=== PATIENT | female | born 1945 | race Caucasian/White ===

== ENCOUNTER 2019-06-06 16:14 | Inpatient (IN) | payer MEDICAID, OTHER ==
[2019-06-06] MEDS: ONDANSETRON (ODT) 4 MG TAB ODT (16:33)
[2019-06-06] MEDS: HYDROCODONE/APAP (10/325) TAB PO (16:33)
[2019-06-06 17:17] LABS: ADD MAN DIFF? NO
[2019-06-06 17:23] LABS: BASOPHILS % 0.3 % (0.0-2.0); EOSINOPHILS % 0.6 % (0.0-7.0); HEMATOCRIT 37.9 % (37.0-47.0); HEMOGLOBIN 12.4 g/dl (12.0-16.0); LYMPHOCYTES # 0.9 10^3/ul (0.8-2.9); LYMPHOCYTES % 12.6 % (15.0-51.0); MEAN CORPUSCULAR HEMOGLOBIN 28.4 pg (29.0-33.0); MEAN CORPUSCULAR HGB CONC 32.7 g/dl (32.0-37.0); MEAN CORPUSCULAR VOLUME 86.7 fl (82.0-101.0); MONOCYTE # 0.4 10^3/ul (0.3-0.9); MONOCYTES % 5.8 % (0.0-11.0); NEUTROPHIL # 5.7 10^3/ul (1.6-7.5); NEUTROPHILS % 80.3 % (39.0-77.0); PLATELET COUNT 149 10^3/UL (140-415); RED BLOOD COUNT 4.37 10^6/ul (4.20-5.40); RED CELL DISTRIBUTION WIDTH 13.6 % (11.5-14.5)
[2019-06-06 17:23] LABS: WHITE BLOOD COUNT 7.1 10^3/ul (4.8-10.8)
[2019-06-06] MEDS ORDERED: ONDANSETRON 4 MG INJ IV (17:30)
[2019-06-06] MEDS ORDERED: ACETAMINOPHEN 325 MG TAB PO ×2 (17:30→18:00)
[2019-06-06 17:42] LABS: INR 1.12; PARTIAL THROMBOPLASTIN TIME 29.1 Sec (23.0-35.0); PROTIME 14.5 Sec (11.9-14.9); PT RATIO 1.1
[2019-06-06 17:47] LABS: ANION GAP 7 (5-13); BLOOD UREA NITROGEN 16 mg/dl (7-20); CALCIUM 8.9 mg/dl (8.4-10.2); CARBON DIOXIDE 25 mmol/L (21-31); CHLORIDE 105 mmol/L (97-110); CREATININE 0.72 mg/dl (0.44-1.00); GLUCOSE 134 mg/dl (70-220); SODIUM 137 mmol/L (135-144)
[2019-06-06 17:49] LABS: POTASSIUM 4.1 mmol/L (3.5-5.1)
[2019-06-06 17:59] LABS: TROPONIN-I < 0.012 ng/ml (0.000-0.120)
[2019-06-06] MEDS ORDERED: NACL 0.9% 3 ML SYG IV (18:00)
[2019-06-06] MEDS ORDERED: MAGNESIUM HYDROXIDE 30ML CUP PO (18:00)
[2019-06-06] MEDS ORDERED: GLUCOSE GEL 15 GRAM TUBE BUCCAL (18:30)
[2019-06-06] MEDS ORDERED: DEXTROSE 50% 50 ML SYRINGE IV ×2 (18:30)
[2019-06-06] MEDS ORDERED: GLUCAGON 1 MG INJ IM (18:30)
[2019-06-06] MEDS ORDERED: GLUCOSE GEL 15 GRAM TUBE PO ×2 (18:30)
[2019-06-06] MEDS: morphine 2 MG INJ IV ×2 (18:47→23:30)
[2019-06-06] MEDS: ONDANSETRON 4 MG INJ IV (18:47)
[2019-06-06] MEDS ORDERED: hydrALAzine 20 MG INJ IV (19:00)
[2019-06-06] MEDS: DEXTROSE 5%-0.45% NACL 1,000 ML IV (20:26)
[2019-06-06] MEDS: INSULIN ASPART [NOVOLOG] 3 ML PEN SC (23:44)
[2019-06-07] MEDS: INSULIN ASPART [NOVOLOG] 3 ML PEN SC ×6 (01:21→21:13)
[2019-06-07 01:29] LABS: TROPONIN-I < 0.012 ng/ml (0.000-0.120)
[2019-06-07] MEDS: DEXTROSE 5%-0.45% NACL 1,000 ML IV ×3 (02:39→15:57)
[2019-06-07 04:57] LABS: ADD MAN DIFF? NO
[2019-06-07 05:02] LABS: BASOPHILS % 0.2 % (0.0-2.0); EOSINOPHILS # 0.1 10^3/ul (0.0-0.5); EOSINOPHILS % 1.1 % (0.0-7.0); HEMATOCRIT 37.9 % (37.0-47.0); HEMOGLOBIN 12.2 g/dl (12.0-16.0); LYMPHOCYTES % 17.5 % (15.0-51.0); MEAN CORPUSCULAR HEMOGLOBIN 27.9 pg (29.0-33.0); MEAN CORPUSCULAR HGB CONC 32.2 g/dl (32.0-37.0); MEAN CORPUSCULAR VOLUME 86.5 fl (82.0-101.0); MEAN PLATELET VOLUME 9.7 fl (7.4-10.4); MONOCYTE # 0.5 10^3/ul (0.3-0.9); MONOCYTES % 8.1 % (0.0-11.0); NEUTROPHILS % 72.9 % (39.0-77.0); PLATELET COUNT 133 10^3/UL (140-415); RED BLOOD COUNT 4.38 10^6/ul (4.20-5.40); RED CELL DISTRIBUTION WIDTH 13.5 % (11.5-14.5)
[2019-06-07 05:02] LABS: WHITE BLOOD COUNT 5.5 10^3/ul (4.8-10.8)
[2019-06-07] MEDS: HYDROCODONE/APAP (5/325) TAB PO ×2 (05:14→18:19)
[2019-06-07] MEDS: PANTOPRAZOLE (EC) 40 MG TAB PO (05:14)
[2019-06-07 05:16] LABS: HDL CHOLESTEROL 37 mg/dl (33-92); LDL CHOLESTEROL,CALCULATED 33 mg/dl; TRIGLYCERIDES 25 mg/dl (0-149)
[2019-06-07 05:16] LABS: CHOLESTEROL 75 mg/dl (100-200)
[2019-06-07 05:27] LABS: TROPONIN-I < 0.012 ng/ml (0.000-0.120)
[2019-06-07 07:55] LABS: ANION GAP 5 (5-13); BLOOD UREA NITROGEN 10 mg/dl (7-20); CALCIUM 8.6 mg/dl (8.4-10.2); CARBON DIOXIDE 25 mmol/L (21-31); CHLORIDE 107 mmol/L (97-110); GLUCOSE 126 mg/dl (70-220); MAGNESIUM 1.8 mg/dl (1.7-2.5); POTASSIUM 4.1 mmol/L (3.5-5.1); SODIUM 137 mmol/L (135-144)
[2019-06-07] MEDS: BENAZEPRIL 10 MG TAB PO (08:21)
[2019-06-07 13:00] LABS: TROPONIN-I < 0.012 ng/ml (0.000-0.120)
[2019-06-08] MEDS: PANTOPRAZOLE (EC) 40 MG TAB PO (05:18)
[2019-06-08] MEDS: HYDROCODONE/APAP (5/325) TAB PO ×2 (05:18→13:24)
[2019-06-08] MEDS: INSULIN ASPART [NOVOLOG] 3 ML PEN SC ×4 (07:20→20:09)
[2019-06-08] MEDS: BENAZEPRIL 10 MG TAB PO (08:38)
[2019-06-08] MEDS: DEXTROSE 5%-0.45% NACL 1,000 ML IV ×2 (09:40→14:57)
[2019-06-08] MEDS: morphine 2 MG INJ IV (14:57)
[2019-06-08 14:58] LABS: ADD UMIC YES; UR ASCORBIC ACID NEGATIVE (NEGATIVE); UR BILIRUBIN (Dip) NEGATIVE (NEGATIVE); UR BLOOD (Dip) 1+ mg/dL (NEGATIVE); UR CLARITY CLEAR (CLEAR); UR COLOR YELLOW (YELLOW); UR GLUCOSE (Dip) NEGATIVE (NEGATIVE); UR KETONES (Dip) TRACE mg/dL (NEGATIVE); UR LEUKOCYTE ESTERASE (Dip) NEGATIVE Leu/ul (NEGATIVE); UR NITRITE (Dip) NEGATIVE (NEGATIVE); UR RBC 0 /HPF (0-5); UR SPECIFIC GRAVITY (Dip) 1.008 (1.003-1.030); UR TOTAL PROTEIN (Dip) NEGATIVE (NEGATIVE); UR UROBILINOGEN (Dip) NEGATIVE (NEGATIVE); UR WBC 0 /HPF (0-5)
[2019-06-09] MEDS: morphine 2 MG INJ IV (01:42)
[2019-06-09 05:20] LABS: ADD MAN DIFF? NO
[2019-06-09] MEDS: PANTOPRAZOLE (EC) 40 MG TAB PO (05:28)
[2019-06-09 05:29] LABS: WHITE BLOOD COUNT 5.3 10^3/ul (4.8-10.8)
[2019-06-09 05:29] LABS: BASOPHILS % 0.2 % (0.0-2.0); EOSINOPHILS # 0.1 10^3/ul (0.0-0.5); EOSINOPHILS % 2.3 % (0.0-7.0); HEMATOCRIT 40.5 % (37.0-47.0); HEMOGLOBIN 13.1 g/dl (12.0-16.0); LYMPHOCYTES % 18.8 % (15.0-51.0); MEAN CORPUSCULAR HEMOGLOBIN 27.6 pg (29.0-33.0); MEAN CORPUSCULAR HGB CONC 32.3 g/dl (32.0-37.0); MEAN CORPUSCULAR VOLUME 85.3 fl (82.0-101.0); MEAN PLATELET VOLUME 10.2 fl (7.4-10.4); MONOCYTE # 0.5 10^3/ul (0.3-0.9); MONOCYTES % 8.8 % (0.0-11.0); NEUTROPHIL # 3.7 10^3/ul (1.6-7.5); NEUTROPHILS % 69.7 % (39.0-77.0); PLATELET COUNT 131 10^3/UL (140-415); RED BLOOD COUNT 4.75 10^6/ul (4.20-5.40); RED CELL DISTRIBUTION WIDTH 13.3 % (11.5-14.5)
[2019-06-09 05:56] LABS: ALBUMIN 3.5 g/dl (3.3-4.9); ANION GAP 6 (5-13); BLOOD UREA NITROGEN 11 mg/dl (7-20); CALCIUM 8.9 mg/dl (8.4-10.2); CARBON DIOXIDE 27 mmol/L (21-31); CHLORIDE 102 mmol/L (97-110); CREATININE 0.55 mg/dl (0.44-1.00); GLUCOSE 136 mg/dl (70-220); MAGNESIUM 1.9 mg/dl (1.7-2.5); PHOSPHORUS 2.8 mg/dl (2.5-4.9); POTASSIUM 3.9 mmol/L (3.5-5.1); SODIUM 135 mmol/L (135-144)
[2019-06-09] MEDS: INSULIN ASPART [NOVOLOG] 3 ML PEN SC ×4 (08:00→20:07)
[2019-06-09] MEDS ORDERED: ROCURONIUM 50 MG INJ (08:03)
[2019-06-09] MEDS ORDERED: PROPOFOL 20 ML (08:03)
[2019-06-09] MEDS ORDERED: LIDOCAINE 2% (SDV) 5 ML INJ (08:03)
[2019-06-09] MEDS ORDERED: MIDAZOLAM 1 MG/ML 2 ML INJ (08:04)
[2019-06-09] MEDS ORDERED: FENTAnyl 50 MCG/ML VIAL (08:04)
[2019-06-09] MEDS ORDERED: BUPIVACAINE 0.5% (SDV) 30 ML INJ (08:04)
[2019-06-09] MEDS ORDERED: METOCLOPRAMIDE 10 MG INJ (08:04)
[2019-06-09] MEDS ORDERED: morphine SULFATE/PF (10 MG/10 ML) INJ (08:04)
[2019-06-09] MEDS ORDERED: ONDANSETRON 4 MG INJ (08:04)
[2019-06-09] MEDS ORDERED: POLYMYXIN/BACITRACIN 1L IRRIG (08:33)
[2019-06-09] MEDS ORDERED: CEFAZOLIN 1 GM INJ (09:00)
[2019-06-09] MEDS ORDERED: PHENYLephrine (100 MCG/ML) 10ML SYG ×2 (10:03→11:32)
[2019-06-09] MEDS ORDERED: EPHEDrine 25 MG/5 ML SYG (10:10)
[2019-06-09] MEDS: BACITRACIN 50000 UNITS INJ (10:11)
[2019-06-09] MEDS: POLYMYXIN B 500000 UNIT INJ (10:11)
[2019-06-09] MEDS ORDERED: ALBUMIN HUMAN 5% 250 ML (10:33)
[2019-06-09 10:55] LABS: IMMEDIATE SPIN CROSSMATCH 1 1
[2019-06-09] MEDS ORDERED: SUGAMMADEX SODIUM 200 MG/2 ML VIAL IV (11:14)
[2019-06-09] MEDS ORDERED: DIPHENHYDRAMINE 50 MG INJ IV (11:30)
[2019-06-09] MEDS ORDERED: NALBUPHINE HCL (10 MG/1 ML) INJ IV (11:30)
[2019-06-09] MEDS ORDERED: PROCHLORPERAZINE 10 MG INJ IV (11:30)
[2019-06-09] MEDS ORDERED: NALOXONE (0.4 MG/ML) INJ IV (11:30)
[2019-06-09] MEDS ORDERED: FENTAnyl 50 MCG/ML VIAL IV (11:30)
[2019-06-09] MEDS ORDERED: MEPERIDINE 25 MG INJ IV (11:30)
[2019-06-09] MEDS ORDERED: HYDROmorphONE 0.5 MG/0.5 ML SYG IV (11:30)
[2019-06-09] MEDS ORDERED: GLYCOPYRROLATE 0.4 MG INJ (11:34)
[2019-06-09] MEDS ORDERED: morphine 4 MG/ML VIAL IV (12:00)
[2019-06-09] MEDS ORDERED: NACL 0.9% 3 ML SYG IV (12:00)
[2019-06-09] MEDS: HYDROmorphONE 1 MG/5 ML IV SYRINGE IV ×2 (12:27→12:35)
[2019-06-09] MEDS: SOD CHLORIDE 0.9% 1,000 ML IV ×2 (12:33→20:01)
[2019-06-09 12:34] LABS: ADD MAN DIFF? NO
[2019-06-09] MEDS: ONDANSETRON 4 MG INJ IV ×2 (12:35→13:50)
[2019-06-09 12:42] LABS: WHITE BLOOD COUNT 8.4 10^3/ul (4.8-10.8)
[2019-06-09 12:42] LABS: BASOPHILS % 0.1 % (0.0-2.0); EOSINOPHILS # 0.1 10^3/ul (0.0-0.5); HEMATOCRIT 37.1 % (37.0-47.0); LYMPHOCYTES # 1.3 10^3/ul (0.8-2.9); LYMPHOCYTES % 15.5 % (15.0-51.0); MEAN CORPUSCULAR HEMOGLOBIN 28.1 pg (29.0-33.0); MEAN CORPUSCULAR HGB CONC 32.3 g/dl (32.0-37.0); MEAN CORPUSCULAR VOLUME 86.9 fl (82.0-101.0); MEAN PLATELET VOLUME 9.8 fl (7.4-10.4); MONOCYTE # 0.7 10^3/ul (0.3-0.9); MONOCYTES % 7.8 % (0.0-11.0); NEUTROPHIL # 6.3 10^3/ul (1.6-7.5); NEUTROPHILS % 75.2 % (39.0-77.0); PLATELET COUNT 134 10^3/UL (140-415); RED BLOOD COUNT 4.27 10^6/ul (4.20-5.40); RED CELL DISTRIBUTION WIDTH 13.3 % (11.5-14.5)
[2019-06-09 12:44] LABS: POSITIVE DIFF @See below
[2019-06-09 12:53] LABS: ANION GAP 6 (5-13); BLOOD UREA NITROGEN 10 mg/dl (7-20); CARBON DIOXIDE 24 mmol/L (21-31); CHLORIDE 106 mmol/L (97-110); CREATININE 0.55 mg/dl (0.44-1.00); GLUCOSE 178 mg/dl (70-220); POTASSIUM 4.4 mmol/L (3.5-5.1); SODIUM 136 mmol/L (135-144)
[2019-06-09] MEDS: DEXTROSE 5%-0.45% NACL 1,000 ML IV (14:21)
[2019-06-09] MEDS: BENAZEPRIL 10 MG TAB PO (14:25)
[2019-06-09] MEDS: CEFAZOLIN 2 GM/50 ML (PMX) 50 ML IVPB ×2 (14:28→20:01)
[2019-06-09] MEDS: TRIMETHOBENZAMIDE 100 MG/ML VIAL IM (16:18)
[2019-06-09] MEDS: METOCLOPRAMIDE 10 MG INJ IV (18:14)
[2019-06-10] MEDS: CEFAZOLIN 2 GM/50 ML (PMX) 50 ML IVPB (04:50)
[2019-06-10] MEDS: PANTOPRAZOLE (EC) 40 MG TAB PO (04:50)
[2019-06-10 04:57] LABS: ADD MAN DIFF? NO; BASOPHILS % 0.2 % (0.0-2.0); EOSINOPHILS % 0.2 % (0.0-7.0); HEMATOCRIT 28.6 % (37.0-47.0); HEMOGLOBIN 9.3 g/dl (12.0-16.0); LYMPHOCYTES # 0.7 10^3/ul (0.8-2.9); LYMPHOCYTES % 12.7 % (15.0-51.0); MEAN CORPUSCULAR HEMOGLOBIN 27.9 pg (29.0-33.0); MEAN CORPUSCULAR HGB CONC 32.5 g/dl (32.0-37.0); MEAN CORPUSCULAR VOLUME 85.9 fl (82.0-101.0); MEAN PLATELET VOLUME 10.8 fl (7.4-10.4); MONOCYTE # 0.7 10^3/ul (0.3-0.9); MONOCYTES % 13.1 % (0.0-11.0); NEUTROPHIL # 4.2 10^3/ul (1.6-7.5); NEUTROPHILS % 73.6 % (39.0-77.0); PLATELET COUNT 116 10^3/UL (140-415); RED BLOOD COUNT 3.33 10^6/ul (4.20-5.40); RED CELL DISTRIBUTION WIDTH 13.4 % (11.5-14.5)
[2019-06-10 04:57] LABS: WHITE BLOOD COUNT 5.7 10^3/ul (4.8-10.8)
[2019-06-10 05:22] LABS: ALBUMIN 2.7 g/dl (3.3-4.9); ANION GAP 3 (5-13); BLOOD UREA NITROGEN 16 mg/dl (7-20); CALCIUM 8.2 mg/dl (8.4-10.2); CARBON DIOXIDE 25 mmol/L (21-31); CHLORIDE 107 mmol/L (97-110); CREATININE 0.58 mg/dl (0.44-1.00); GLUCOSE 139 mg/dl (70-220); MAGNESIUM 1.6 mg/dl (1.7-2.5); PHOSPHORUS 2.8 mg/dl (2.5-4.9); POTASSIUM 4.4 mmol/L (3.5-5.1); SODIUM 135 mmol/L (135-144)
[2019-06-10] MEDS: BENAZEPRIL 10 MG TAB PO (08:45)
[2019-06-10] MEDS: morphine 2 MG INJ IV ×3 (08:46→20:11)
[2019-06-10] MEDS: SOD CHLORIDE 0.9% 1,000 ML IV (08:47)
[2019-06-10] MEDS: ENOXAPARIN 40 MG/0.4 ML SYG SC (08:47)
[2019-06-10] MEDS: INSULIN ASPART [NOVOLOG] 3 ML PEN SC ×4 (08:48→21:27)
[2019-06-10] MEDS: MAGNESIUM OXIDE 400 MG TAB PO (17:45)
[2019-06-10] MEDS: DOCUSATE SODIUM 100 MG CAP PO (21:25)
[2019-06-11] MEDS: SOD CHLORIDE 0.9% 1,000 ML IV ×2 (00:18→13:49)
[2019-06-11 05:12] LABS: ADD MAN DIFF? NO
[2019-06-11 05:16] LABS: BASOPHILS % 0.2 % (0.0-2.0); EOSINOPHILS % 0.3 % (0.0-7.0); HEMOGLOBIN 8.4 g/dl (12.0-16.0); LYMPHOCYTES # 0.7 10^3/ul (0.8-2.9); LYMPHOCYTES % 11.9 % (15.0-51.0); MEAN CORPUSCULAR HEMOGLOBIN 28.2 pg (29.0-33.0); MEAN CORPUSCULAR HGB CONC 33.6 g/dl (32.0-37.0); MEAN CORPUSCULAR VOLUME 83.9 fl (82.0-101.0); MEAN PLATELET VOLUME 10.7 fl (7.4-10.4); MONOCYTE # 0.8 10^3/ul (0.3-0.9); NEUTROPHIL # 4.3 10^3/ul (1.6-7.5); NEUTROPHILS % 74.3 % (39.0-77.0); PLATELET COUNT 106 10^3/UL (140-415); RED BLOOD COUNT 2.98 10^6/ul (4.20-5.40); RED CELL DISTRIBUTION WIDTH 13.3 % (11.5-14.5)
[2019-06-11 05:16] LABS: WHITE BLOOD COUNT 5.8 10^3/ul (4.8-10.8)
[2019-06-11 05:29] LABS: ALBUMIN 2.6 g/dl (3.3-4.9); ANION GAP 4 (5-13); BLOOD UREA NITROGEN 9 mg/dl (7-20); CALCIUM 8.2 mg/dl (8.4-10.2); CARBON DIOXIDE 25 mmol/L (21-31); CHLORIDE 104 mmol/L (97-110); CREATININE 0.46 mg/dl (0.44-1.00); GLUCOSE 140 mg/dl (70-220); MAGNESIUM 1.8 mg/dl (1.7-2.5); PHOSPHORUS 2.2 mg/dl (2.5-4.9); POTASSIUM 3.8 mmol/L (3.5-5.1); SODIUM 133 mmol/L (135-144)
[2019-06-11] MEDS: morphine 2 MG INJ IV (05:46)
[2019-06-11] MEDS: PANTOPRAZOLE (EC) 40 MG TAB PO (05:46)
[2019-06-11] MEDS: BENAZEPRIL 10 MG TAB PO (08:30)
[2019-06-11] MEDS: ENOXAPARIN 40 MG/0.4 ML SYG SC (08:33)
[2019-06-11] MEDS: INSULIN ASPART [NOVOLOG] 3 ML PEN SC ×4 (08:34→21:00)
[2019-06-11] MEDS: HYDROCODONE/APAP (5/325) TAB PO ×2 (11:32→15:08)
[2019-06-12] MEDS: SOD CHLORIDE 0.9% 1,000 ML IV (02:19)
[2019-06-12] MEDS: PANTOPRAZOLE (EC) 40 MG TAB PO (05:44)
[2019-06-12] MEDS: INSULIN ASPART [NOVOLOG] 3 ML PEN SC ×4 (07:50→21:00)
[2019-06-12] MEDS: BENAZEPRIL 10 MG TAB PO (09:31)
[2019-06-12] MEDS: ENOXAPARIN 40 MG/0.4 ML SYG SC (09:32)
[2019-06-12] MEDS: HYDROCODONE/APAP (5/325) TAB PO ×2 (09:35→13:58)
[2019-06-13] MEDS: PANTOPRAZOLE (EC) 40 MG TAB PO (05:22)
[2019-06-13] MEDS: HYDROCODONE/APAP (5/325) TAB PO ×3 (05:22→18:04)
[2019-06-13] MEDS: INSULIN ASPART [NOVOLOG] 3 ML PEN SC ×3 (07:50→17:55)
[2019-06-13] MEDS: BENAZEPRIL 10 MG TAB PO (08:33)
[2019-06-13] MEDS: ENOXAPARIN 40 MG/0.4 ML SYG SC (08:35)
== END 2019-06-13 18:45 | disposition home health service (06) | DRG 470 ==
LOC: E/R 16:14 → MS1 06-10 20:54
PROC: 0SRR0JZ Replacement of Right Hip Joint, Femoral Surface with Synthetic Substitute, Open Approach (ICD-10-PCS; principal; 2019-06-09 08:30)
PROC: 30233N1 Transfusion of Nonautologous Red Blood Cells into Peripheral Vein, Percutaneous Approach (ICD-10-PCS; 2019-06-09 09:01)
DX: S72.011A Unspecified intracapsular fracture of right femur, initial encounter for closed fracture (principal); S52.501A Unspecified fracture of the lower end of right radius, initial encounter for closed fracture; I10 Essential (primary) hypertension; E11.9 Type 2 diabetes mellitus without complications; R00.0 Tachycardia, unspecified; Z79.84 Long term (current) use of oral hypoglycemic drugs; W10.9XXA Fall (on) (from) unspecified stairs and steps, initial encounter
CPT/HCPCS: 36415; 36430; 71045; 72170; 73110-RT; 73500; 73510; 80048; 80061; 80069; 81001; 82962; 83036; 83735; 84484; 85025; 85610; 85730; 86850; 86900; 86901; 86920; 87086; 88305; 88311; 93005; 93306; 97110; 97116; 97163; 97530; 99285-25